=== PATIENT | male | born 1970 | race Caucasian/White ===

== ENCOUNTER 2024-12-08 12:00 | Emergency (ER) | payer BC, OTHER ==
[~2024-12-08] VITALS: Ht 180.3 cm; Wt 92.5 kg
[~2024-12-08 12:00] MED LIST: FAMO20TA44 PO; HYDR-4353 PO; IBUP200C5 PO; METO5TAB98 PO; OMEP20CA15 PO; ONDA-243 PO; ONDA4TAB59 PO; ONDA4TAB6 PO; PROM25SU9 RC
[2024-12-08 12:17] VITALS: BP 159/94; PULSE 76; RESP 18; O2SAT 98
--- NOTE | 2024-12-08 13:25 | RADIOLOGY REPORT ---
[facility] INDICATION: PAIN COMPARISON: None TECHNIQUE: 6 views of the cervical spine were obtained. FINDINGS: The cervical vertebral alignment is normal. The predental space is normal. The intervertebral disc spaces are well-maintained. No significant facet arthropathy is noted. No acute fracture, vertebral compression deformity or aggressive osseous lesions. The imaged lung apices are unremarkable. IMPRESSION: 1. No acute fracture.
--- NOTE | 2024-12-08 13:44 | RADIOLOGY REPORT ---
DI LUMBAR SPINE LIMITED, HISTORY: PAIN COMPARISON: None TECHNICAL DATA: Frontal and lateral views were obtained of the lumbar spine . FINDINGS: There are 5 lumbar type vertebral bodies. Lumbar curvature is within normal limits. There is no spond ylolisthesis. Vertebral body heights are maintained. Disk heights are narrow. The facet joints appear degenerative. The sacroiliac joints are symmetric. Paraspinal soft tissues are within normal limits. IMPRESSION: No acute fracture or dislocation of the lumbar spine.
[2024-12-08] MEDS ORDERED: ketorolac trometh 15mg/ml vial 15 MG/ML ML IM ONE (14:30)
[2024-12-08] MEDS ORDERED: CYCL-1 PO (14:37)
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
[2024-12-08 14:47] VITALS: TEMP 97.3
== END 2024-12-08 14:49 | disposition home or self-care (01) ==
LOC: ER 12:00
DX: S29.012A Strain of muscle and tendon of back wall of thorax, initial encounter (principal); Y92.410 Unspecified street and highway as the place of occurrence of the external cause; Y93.89 Activity, other specified; V89.2XXA Person injured in unspecified motor-vehicle accident, traffic, initial encounter; Y99.8 Other external cause status
CPT/HCPCS: 72040; 72100; 99284